=== PATIENT | male | born 1975 | race Caucasian/White ===

== ENCOUNTER 2017-06-03 10:51 | Emergency (ER) | payer BC, OTHER ==
[2017-06-03] MEDS: Diltiazem 25 MG/5 ML SDV IVPUSH ONE ×2 (11:00→11:25)
[2017-06-03] MEDS ORDERED: Aspirin 81 MG Tab.Chew PO ONE (11:07)
[2017-06-03] MEDS ORDERED: Sodium Chloride 0.9% 10 ML Syringe FLUSH PRN (11:07)
[2017-06-03] MEDS ORDERED: Diltiazem 125 MG/25 ML SDV ONE (11:11)
[2017-06-03] MEDS ORDERED: Diltiazem 25 MG/5 ML SDV ONE (11:11)
[2017-06-03] MEDS ORDERED: Sodium Chloride 0.9% 100 ML ONE (11:13)
[2017-06-03] MEDS ORDERED: Diltiazem 125 MG in Sodium Chloride 0.9% 100 ML IV SCH (11:15)
--- NOTE | 2017-06-03 11:28 | EDM.PDOC ---
ED HPI GENERAL MEDICAL PROBLEM - General Chief Complaint: Cardiovascular Problem Stated Complaint: HIGH BP-SENT FROM [place] Time Seen by Provider: 06/03/17 11:07 Source of Information: Reports: Patient History Limitations: Reports: No Limitations - History of Present Illness INITIAL COMMENTS - FREE TEXT/NARRATIVE: The patient presents from [facility] for elevated blood pressure and tachycardia. The patient says he has not felt well for about a month. He is short of breath with exertion. His blood pressure has been high for awhile but never high enough to treat it. He has no chest pain. He has no fever or chills. He has a slight cough that is not productive. 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 He has no abdominal pain, nausea or vomiting. He does have a decreased appetite and lost 17 pounds in the past month. He also has edema in both legs. He has no pain is his legs. He has no history of DVT, PE, CAD, diabetes or A-fib. His heart rate when Onset: Gradual Duration: Week(s): (4) Severity: Moderate Improves with: Reports: None Worsens with: Reports: None Associated Symptoms: Reports: Cough, Shortness of Breath. Denies: Confusion, Chest Pain, Diaphoresis, Fever/Chills, Headaches, Loss of Appetite, Nausea/ Vomiting Chest Pain Score (Numeric/FACES): 0 - Related Data Allergies Allergy/AdvReac Type Severity Reaction Status Date / Time No Known Allergies Allergy Verified 06/03/17 11:39 ED ROS GENERAL - Review of Systems Review Of Systems: See Below Constitutional: Reports: No Symptoms HEENT: Reports: No Symptoms Respiratory: Reports: Shortness of Breath, Cough Cardiovascular: Reports: Edema, Palpitations. Denies: Chest Pain Endocrine: Reports: No Symptoms GI/Abdominal: Reports: No Symptoms : Reports: No Symptoms Musculoskeletal: Reports: No Symptoms ED EXAM, GENERAL - Physical Exam Exam: See Below Exam Limited By: No Limitations General Appearance: Alert, No Apparent Distress Ears: Normal External Exam Nose: Normal Inspection Head: Atraumatic, Normocephalic Neck: Normal Inspection Respiratory/Chest: No Respiratory Distress, Normal Breath Sounds, Rales (Fine rales at santhosh bases) Cardiovascular: Regular Rate, Rhythm, No Murmur, Other (Bilateral pedal edema) GI/Abdominal: Soft, Non-Tender, No Organomegaly, No Mass Back Exam: Normal Inspection Extremities: Pedal Edema Neurological: Alert, Oriented, No Motor/Sensory Deficits Course - Vital Signs Last Recorded V/S: Last Vital Signs Temp 96.8 F 06/03/17 10:51 Pulse 142 H 06/03/17 10:51 Resp 32 H 06/03/17 10:51 BP 213/164 H 06/03/17 10:51 Pulse Ox 100 06/03/17 10:51 - Orders/Labs/Meds Orders: Active Orders 24 hr Category Date Time Status Cardiac Monitoring [RC] . DIRECTED Care 06/03/17 11:07 Active EKG Documentation Completion [RC] ASDIRECTED Care 06/03/17 12:00 Active EKG Documentation Completion [RC] STAT Care 06/03/17 11:08 Active Oxygen Therapy [RC] PRN Care 06/03/17 11:08 Active Peripheral IV Care [RC] . DIRECTED Care 06/03/17 11:08 Active Chest 1V Frontal [CR] Stat Exams 06/03/17 11:08 Taken Diltiazem 125 mg Med 06/03/17 11:15 Active Sodium Chloride 0.9% [Normal Saline] 100 ml IV TITRATE Sodium Chloride 0.9% [Normal Saline] 100 ml Med 06/03/17 11:45 Active IV ASDIRECTED Sodium Chloride 0.9% [Saline Flush] Med 06/03/17 11:07 Active 10 ml FLUSH ASDIRECTED PRN Peripheral IV Insertion Adult [OM.PC] Stat Oth 06/03/17 11:07 Ordered EKG 12 Lead [EK] Stat Ther 06/03/17 11:59 Ordered Medication Orders Diltiazem HCl 125 mg/ Sodium (Chloride) 125 mls @ 10 mls/hr IV TITRATE DOROTHY; 10 MG/HR PRN Reason: Protocol Last Admin: 06/03/17 11:25 Dose: 10 mg/hr, 10 mls/hr Sodium Chloride (Normal Saline) 100 mls @ 75 mls/hr IV ASDIRECTED DOROTHY Sodium Chloride (Saline Flush) 10 ml FLUSH ASDIRECTED PRN PRN Reason: Keep Vein Open Last Admin: 06/03/17 11:00 Dose: 10 ml Labs: Laboratory Tests 06/03/17 06/03/17 06/03/17 Range/Units 11:00 11:00 11:00 WBC 13.55 H (4.23-9.07) K/mm3 RBC 4.14 L (4.63-6.08) M/mm3 Hgb 11.2 L (13.7-17.5) gm/L Hct 34.2 L (40.1-51.0) % MCV 82.6 (79.0-92.2) fl MCH 27.1 (25.7-32.2) pg MCHC 32.7 (32.2-35.5) g/dl RDW Std Deviation 46.0 H (35.1-43.9) fL Plt Count 370 H (163-337) K/mm3 MPV 10.6 (9.4-12.3) fl Neut % (Auto) 83.1 H (34.0-67.9) % Lymph % (Auto) 7.0 L (21.8-53.1) % [place] % (Auto) 5.5 (5.3-12.2) % Eos % (Auto) 3.9 (0.8-7.0) Baso % (Auto) 0.4 (0.1-1.2) % Neut # (Auto) 11.26 H (1.78-5.38) K/mm3 Lymph # (Auto) 0.95 L (1.32-3.57) K/mm3 [place] # (Auto) 0.74 (0.30-0.82) K/mm3 Eos # (Auto) 0.53 (0.04-0.54) K/mm3 Baso # (Auto) 0.05 (0.01-0.08) K/mm3 Manual Slide Review Abnormal smear D-Dimer, Quantitative 1.90 H (0.19-0.59) mg/L Sodium 136 (136-145) mEq/L Potassium 3.2 L (3.5-5.1) mEq/L Chloride 100 (98-107) mEq/L Carbon Dioxide 23 (21-32) mEq/L Anion Gap 16.2 H (5-15) BUN 77 H (7-18) mg/dL Creatinine 6.5 H (0.7-1.3) mg/dL Est Cr Clr Drug Dosing 15.44 mL/min Estimated GFR (MDRD) 9 (>60) mL/min BUN/Creatinine Ratio 11.8 L (14-18) Glucose 196 H (74-106) mg/dL Calcium 9.0 (8.5-10.1) mg/dL Total Bilirubin 0.8 (0.2-1.0) mg/dL AST 60 H (15-37) U/L ALT 78 H (16-63) U/L Alkaline Phosphatase 80 (46-116) U/L Troponin I 0.614 H* (0.00-0.056) ng/mL NT-Pro-B Natriuret Pep (0-125) pg/mL Total Protein 6.8 (6.4-8.2) g/dl Albumin 2.6 L (3.4-5.0) g/dl Globulin 4.2 gm/dL Albumin/Globulin Ratio 0.6 L (1-2) 06/03/17 Range/Units 11:00 WBC (4.23-9.07) K/mm3 RBC (4.63-6.08) M/mm3 Hgb (13.7-17.5) gm/L Hct (40.1-51.0) % MCV (79.0-92.2) fl MCH (25.7-32.2) pg MCHC (32.2-35.5) g/dl RDW Std Deviation (35.1-43.9) fL Plt Count (163-337) K/mm3 MPV (9.4-12.3) fl Neut % (Auto) (34.0-67.9) % Lymph % (Auto) (21.8-53.1) % [place] % (Auto) (5.3-12.2) % Eos % (Auto) (0.8-7.0) Baso % (Auto) (0.1-1.2) % Neut # (Auto) (1.78-5.38) K/mm3 Lymph # (Auto) (1.32-3.57) K/mm3 [place] # (Auto) (0.30-0.82) K/mm3 Eos # (Auto) (0.04-0.54) K/mm3 Baso # (Auto) (0.01-0.08) K/mm3 Manual Slide Review D-Dimer, Quantitative (0.19-0.59) mg/L Sodium (136-145) mEq/L Potassium (3.5-5.1) mEq/L Chloride (98-107) mEq/L Carbon Dioxide (21-32) mEq/L Anion Gap (5-15) BUN (7-18) mg/dL Creatinine (0.7-1.3) mg/dL Est Cr Clr Drug Dosing mL/min Estimated GFR (MDRD) (>60) mL/min BUN/Creatinine Ratio (14-18) Glucose (74-106) mg/dL Calcium (8.5-10.1) mg/dL Total Bilirubin (0.2-1.0) mg/dL AST (15-37) U/L ALT (16-63) U/L Alkaline Phosphatase (46-116) U/L Troponin I (0.00-0.056) ng/mL NT-Pro-B Natriuret Pep 42368 H (0-125) pg/mL Total Protein (6.4-8.2) g/dl Albumin (3.4-5.0) g/dl Globulin gm/dL Albumin/Globulin Ratio (1-2) Meds: Medications Generic Name Dose Route Start Last Admin Trade Name Freq PRN Reason Stop Dose Admin Diltiazem HCl 125 mg/ Sodium 125 mls @ 10 mls/hr 06/03/17 11:15 06/03/17 11: 25 Chloride IV 10 mg/hr TITRATE DOROTHY 10 mls/hr Protocol Administration 10 MG/HR Sodium Chloride 100 mls @ 75 mls/hr 06/03/17 11:45 Normal Saline IV ASDIRECTED DOROTHY Sodium Chloride 10 ml 06/03/17 11:07 06/03/17 11:00 Saline Flush FLUSH 10 ml ASDIRECTED PRN Administration Keep Vein Open Discontinued Medications Generic Name Dose Route Start Last Admin Trade Name Freq PRN Reason Stop Dose Admin Aspirin 324 mg 06/03/17 11:07 06/03/17 11:25 Aspirin PO 06/03/17 11:08 324 mg ONETIME ONE Administration Diltiazem HCl Confirm 06/03/17 11:11 06/03/17 11:19 Diltiazem Administered 06/03/17 11:12 Not Given Dose 25 mg .ROUTE .STK-MED ONE Diltiazem HCl Confirm 06/03/17 11:11 06/03/17 11:19 Diltiazem Administered 06/03/17 11:12 Not Given Dose 125 mg .ROUTE .STK-MED ONE Diltiazem HCl 10 mg 06/03/17 11:09 06/03/17 11:00 Diltiazem IVPUSH 06/03/17 11:10 10 mg ONETIME ONE Administration Sodium Chloride Confirm 06/03/17 11:13 06/03/17 11:20 Normal Saline Administered 06/03/17 11:14 Not Given Dose 100 mls @ as directed .ROUTE .STK-MED ONE Iopamidol 100 ml 06/03/17 11:39 Isovue-370 (76%) IVPUSH 06/03/17 11:40 ONETIME ONE - Re-Assessments/Exams Free Text/Narrative Re-Assessment/Exam: 06/03/17 11:31 I ordered an IV saline lock, EKG, CXR, labs, cardizem bolus of 10mg IV and a drip of 10mg IV/hr. 06/03/17 12:05 His WBC was elevated at 13.55. His Hgb was low at 11.2. His platelets were elevated at 370. His D-dimer was elevated at 1.9. I ordered a CT angio of his chest but his creatinine came back elevated at 6.5. He is in renal failure His GFR is 9. He has no history of kidney problems and he has been urinating. His K was a little low at 3.2. His anion gap was elevated at 16.2. His BUN was 77. His glucose was elevated at 196. His AST was elevated at 60 and ALT is elevated at 78. His troponin was elevated at 0.614. His BNP was 28,827. I am not sure what the cause is at this time. I feel he will need to go to [facility] for specialized care. I called [facility] and talked with the hospitalist Dr Olivas and he agreed to the transfer. 06/03/17 12:14 I did a repeat EKG and it shows an A-flutter with variable conduction and a prolonged QT. Departure - Departure Time of Disposition: 12:15 Disposition: DC/Tfer to [facility] 02 Reason for Transfer *Q: Other Condition: Serious Clinical Impression: Elevated troponin, Peripheral edema Acute renal failure Qualifiers: Acute renal failure type: unspecified Qualified Code(s): N17.9 - Acute kidney failure, unspecified Atrial flutter Qualifiers: Atrial flutter type: typical Qualified Code(s): I48.3 - Typical atrial flutter Referrals: PCP,None [Primary Care Provider] - Forms: ED Department Discharge - My Orders Last 24 Hours: My Active Orders 06/03/17 11:07 Cardiac Monitoring [RC] . DIRECTED Sodium Chloride 0.9% [Saline Flush] 10 ml FLUSH ASDIRECTED PRN Peripheral IV Insertion Adult [OM.PC] Stat 06/03/17 11:08 EKG Documentation Completion [RC] STAT Oxygen Therapy [RC] PRN Peripheral IV Care [RC] . DIRECTED Chest 1V Frontal [CR] Stat 06/03/17 11:15 Diltiazem 125 mg Sodium Chloride 0.9% [Normal Saline] 100 ml IV TITRATE 06/03/17 11:45 Sodium Chloride 0.9% [Normal Saline] 100 ml IV ASDIRECTED 06/03/17 11:59 EKG 12 Lead [EK] Stat 06/03/17 12:00 EKG Documentation Completion [RC] ASDIRECTED - Assessment/Plan Last 24 Hours: My Active Orders 06/03/17 11:07 Cardiac Monitoring [RC] . DIRECTED Sodium Chloride 0.9% [Saline Flush] 10 ml FLUSH ASDIRECTED PRN Peripheral IV Insertion Adult [OM.PC] Stat 06/03/17 11:08 EKG Documentation Completion [RC] STAT Oxygen Therapy [RC] PRN Peripheral IV Care [RC] . DIRECTED Chest 1V Frontal [CR] Stat 06/03/17 11:15 Diltiazem 125 mg Sodium Chloride 0.9% [Normal Saline] 100 ml IV TITRATE 06/03/17 11:45 Sodium Chloride 0.9% [Normal Saline] 100 ml IV ASDIRECTED 06/03/17 11:59 EKG 12 Lead [EK] Stat 06/03/17 12:00 EKG Documentation Completion [RC] ASDIRECTED
[2017-06-03] MEDS ORDERED: Iopamidol 755 Mg/ML 100 ML Bottle IVPUSH ONE (11:39)
[2017-06-03] MEDS ORDERED: Sodium Chloride 0.9% 100 ML IV SCH (11:45)
--- NOTE | 2017-06-03 12:53 | CR ---
Chest: Portable view of the chest was obtained. Comparison: No prior chest x-ray. Heart is felt to be mildly enlarged. Lungs are clear with no acute infiltrates. Bony structures are grossly intact. Impression: 1. Slight cardiomegaly. Nothing acute is otherwise seen on portable chest x-ray. Diagnostic code #3
== END 2017-06-03 12:49 ==
LOC: JD.ED 10:51
DX: I48.3 Typical atrial flutter (principal); N17.9 Acute kidney failure, unspecified; R79.89 Other specified abnormal findings of blood chemistry
CPT/HCPCS: 36415; 71045; 80053; 83880; 84484; 85025; 85379; 93005; 96365; 96376; 99285; A9270; J3490; J7030; J7050; 93010

== ENCOUNTER 2021-07-03 13:28 | Emergency (ER) | payer BC ==
[2021-07-03] MEDS ORDERED: Ondansetron 4 MG/2 ML SDV IVPUSH ONE (14:21)
[2021-07-03] MEDS ORDERED: Sodium Chloride 0.9% 10 ML Syringe FLUSH PRN (14:21)
[2021-07-03] MEDS ORDERED: Sodium Chloride 0.9% 1,000 ML IV SCH (14:30)
== END 2021-07-03 16:40 | disposition home or self-care (01) ==
LOC: JD.ED 13:28
DX: U07.1 COVID-19 (principal); I10 Essential (primary) hypertension; Z94.0 Kidney transplant status; Z79.899 Other long term (current) drug therapy
CPT/HCPCS: 36415; 71045; 80053; 85025; 85379; 86140; 96374; 99283; J2405; J7030; 99284